=== PATIENT | male | born 1955 | race Caucasian/White ===

== ENCOUNTER 2017-04-05 02:28 | Emergency (ER) | payer OTHER ==
[~2017-04-05] VITALS: Ht 182.9 cm; Wt 68.0 kg
--- NOTE | ~2017-04-05 | EKG ---
[address] [place] [address] ELECTROCARDIOGRAM REPORT Name: ANTONY ACOSTA Room #: DEP Mahad#: [id number] Admission: 04/05/17 Attend Phys: Discharge: 04/05/17 Date of : 57 Report #: [id number] THIS REPORT FOR: //name// [facility] ED Test Date: 2017-04-05 Test Time: 03:04:39 Pat Name: ANTONY ACOSTA Department: Room: Gender: M [employer]: unknown : 1955 Requested By: Sonido Victor Order Number: [id number] MD: Attila Cano Measurements Intervals [place] Rate: 50 P: ND: QRS: 82 QRSD: 100 T: 86 QT: 462 QTc: 422 Interpretive Statements Junctional rhythm Borderline right axis deviation Low voltage, precordial leads ST elevation, consider inferior injury Baseline wander in lead(s) V1 No previous ECG available for comparison Electronically Signed On 04-06-2017 8:45:54 CDT by Attila Cano [email or web address] <ELECTRONICALLY SIGNED> By: Attila Cano MD 04/06/17 0845 3 Attila Cano MD /LEO
[2017-04-05 03:24] LABS: ABG SAMPLE TYPE ARTERIAL; BE(vivo) -20.7 mmol/L (-2 to +3); HCO3 14.4 mmol/L (22.0-26.0); O2(CT) 9.6 mL/dL (15.0-23.0); O2Hb 92.7 % (92.0-98.0); PO2 229.6 mmHg (80.0-100.0); sO2 98.1 % (92.0-98.0); tCO2 18.2 mmol/L (24.0-30.0)
[2017-04-05 03:25] LABS: ABG COMMENT CODE BLUE/BAG TO ETT; LACTATE 19.29 mmol/L (0.5-2.0); PCO2 123.7 mmHg (35.0-45.0); STICK SITE L.FEMORAL; pH 6.685 (7.360-7.450)
[2017-04-05 03:27] LABS: POC CREATININE 0.9 mg/dL (0.6-1.3); POC HEMOGLOBIN 6.1 g/dL (14.0-18.0); POC POTASSIUM 5.2 mmol/L (3.5-5.1)
[2017-04-05 03:32] VITALS: BP 00/00
== END 2017-04-05 07:52 ==
LOC: ER 02:28
PROVIDERS: Emergency Medicine
DX: I46.9 Cardiac arrest, cause unspecified (principal); Z88.6 Allergy status to analgesic agent; Z88.5 Allergy status to narcotic agent